=== PATIENT | male | born 1995 | race African-American/Black ===

== ENCOUNTER 2021-04-28 09:22 | Emergency (ER) | payer OTHER ==
[~2021-04-28] VITALS: Ht 175.3 cm; Wt 93.7 kg
--- NOTE | 2021-04-28 09:59 | NUR ---
PT walked back from triage with chief complaint of unable to sleep, and chest irritations. pt reports ongoing problem for years
--- NOTE | 2021-04-28 12:18 | NUR ---
PT BACK FROM IMAGING, RESTING IN BED.
[2021-04-28 12:31] LABS: ALBUMIN 3.4 g/dL (3.4-5.0); CALCIUM 8.8 mg/dL (8.5-10.1)
[2021-04-28 12:38] LABS: BASOPHILS % (AUTO) 0 % (0-1); EOSINOPHILS % (AUTO) 1 % (1-7); LYMPHOCYTES % (AUTO) 25 % (22-44); MEAN CORPUSCULAR HEMOGLOBIN 28.8 pg (27.5-34.5); MONOCYTES % (AUTO) 7 % (2-9); NEUTROPHILS % (AUTO) 68 % (42-75); PLATELET COUNT 208 x10^3/uL (130-400); RED BLOOD COUNT 5.75 x10^6/uL (4.38-5.82)
[2021-04-28 12:55] LABS: CHLORIDE 108 mmol/L (98-107)
[2021-04-28 12:56] LABS: ANION GAP 7 mmol/L (5-15)
[2021-04-28 13:10] LABS: TROPONIN I < 0.015 ng/mL (0.000-0.045)
[2021-04-28 14:10] VITALS: BP 127/57
--- NOTE | 2021-04-28 14:14 | NUR ---
PT RESTING IN BED
--- NOTE | 2021-04-28 15:16 | NUR ---
POC DISCUSSED, DC INSTRUCTIONS REVIEWED
== END 2021-04-28 15:22 | disposition home or self-care (01) ==
LOC: ED 15:00
DX: M94.0 Chondrocostal junction syndrome [Tietze] (principal); R07.89 Other chest pain; I10 Essential (primary) hypertension
CPT/HCPCS: 36415; 71046; 80048; 82040; 84484; 85025; 93005; 99285